=== PATIENT | female | born 1930 | race Caucasian/White ===

== ENCOUNTER → 2016-07-21 | Outpatient (CLI) | payer OTHER ==
[2016-07-21 09:19] LABS: PROTHROMBIN TIME (PATIENT) 10.9 SECONDS (9.0-12.0)
--- NOTE | 2016-07-24 18:55 | CODING QUERY NO DIAGNOSIS ---
: 1930 TREATMENT RENDERED WITHOUT A DIAGNOSIS To promote full compliance with coding requirements relating to patient care, physician participation is requested in all cases of pedicab driver uncertainty. Please assist us with providing a diagnosis/symptom for the test(s) below: A diagnosis/symptom was not documented on your Order. A valid diagnosis/symptom is required to bill all insurances. Please remember that we are unable to code a diagnosis of rule out, probable, possible, questionable, or suspected. Tests that require a diagnosis: * PROTHROMBIN TIME PRO DOS: 07/21/16 DIAGNOSIS: Provider Signature: Date: Thank you Piper Valenzuela [facility] Information [facility] Once completed, please kindly fax back to [phone] For questions please call [phone]
== END | disposition home or self-care (01) ==
LOC: C.LABOUTLO 08:37
PROVIDERS: ATTEND Family Medicine
DX: I48.91 Unspecified atrial fibrillation (principal)

== ENCOUNTER → 2016-07-24 | Outpatient (CLI) | payer OTHER ==
[2016-07-24 08:37] LABS: HEMATOCRIT 32.7 % (37-47); MEAN CELL VOLUME 85.6 fL (80-100); MEAN CORPUSCULAR HEMOGLOBIN 29.3 pg (25-34); MEAN CORPUSCULAR HGB CONC 34.3 g/dl (32-36); MEAN PLATELET VOLUME 11.6 fL (7.4-10.4); PLATELET COUNT 189 K/uL (130-400); RED BLOOD COUNT 3.82 M/uL (4.2-5.4)
[2016-07-24 08:46] LABS: INR 1.2 (0.9-1.1); PROTHROMBIN TIME (PATIENT) 13.1 SECONDS (9.0-12.0)
[2016-07-24 08:47] LABS: BLOOD UREA NITROGEN 30 mg/dl (7-18); BUN/CREATININE RATIO 17.9 (10-20); CALCIUM 8.7 mg/dl (8.5-10.1); CARBON DIOXIDE 23 mmol/L (21-32); CHLORIDE 102 mmol/L (98-107); GLUCOSE 87 mg/dl (70-99); POTASSIUM 3.8 mmol/L (3.5-5.1); SODIUM 138 mmol/L (136-145)
--- NOTE | 2016-07-25 07:54 | CODING QUERY NO DIAGNOSIS ---
: 1930 TREATMENT RENDERED WITHOUT A DIAGNOSIS To promote full compliance with coding requirements relating to patient care, physician participation is requested in all cases of oven heater uncertainty. Please assist us with providing a diagnosis/symptom for the test(s) below: A diagnosis/symptom was not documented on your Order. A valid diagnosis/symptom is required to bill all insurances. Please remember that we are unable to code a diagnosis of rule out, probable, possible, questionable, or suspected. Tests that require a diagnosis: DOS: 07/24/16 * Partial Renal Profile DIAGNOSIS: * Thyroid Stimulating Hormone DIAGNOSIS: * CBC W/o Differential DIAGNOSIS: * Prothrombin Time Profile DIAGNOSIS: Provider Signature: Date: Thank you Opal Arredondo [facility] Information Management Once completed, please kindly fax back to [phone] For questions please call [phone]
== END | disposition home or self-care (01) ==
LOC: C.LABOUTLO 08:19
PROVIDERS: ATTEND Internal Medicine
DX: Z00.00 Encounter for general adult medical examination without abnormal findings (principal)

== ENCOUNTER → 2016-07-26 | Outpatient (CLI) | payer OTHER ==
[2016-07-26 09:11] LABS: INR 1.8 (0.9-1.1); PROTHROMBIN TIME (PATIENT) 19.4 SECONDS (9.0-12.0)
--- NOTE | 2016-07-27 11:50 | CODING QUERY NO DIAGNOSIS ---
TREATMENT RENDERED WITHOUT A DIAGNOSIS To promote full compliance with coding requirements relating to patient care, physician participation is requested in all cases of customer support specialist uncertainty. Please assist us with providing a diagnosis/symptom for the test(s) below: A diagnosis/symptom was not documented on your Order. A valid diagnosis/symptom is required to bill all insurances. Please remember that we are unable to code a diagnosis of rule out, probable, possible, questionable, or suspected. Tests that require a diagnosis: * PT/INR DIAGNOSIS: Provider Signature: Date: Thank you Nahomy Shipley [employer] Information Management Once completed, please kindly fax back to [phone] For questions please call [phone]
== END | disposition home or self-care (01) ==
LOC: C.LABOUTLO 08:38
PROVIDERS: ATTEND Internal Medicine
DX: I48.91 Unspecified atrial fibrillation (principal)

== ENCOUNTER → 2016-07-27 | Outpatient (CLI) | payer OTHER ==
[2016-07-27 09:15] LABS: INR 2.6 (0.9-1.1)
--- NOTE | 2016-07-28 11:53 | CODING QUERY NO DIAGNOSIS ---
: 1930 TREATMENT RENDERED WITHOUT A DIAGNOSIS To promote full compliance with coding requirements relating to patient care, physician participation is requested in all cases of blister pack operator uncertainty. Please assist us with providing a diagnosis/symptom for the test(s) below: A diagnosis/symptom was not documented on your Order. A valid diagnosis/symptom is required to bill all insurances. Please remember that we are unable to code a diagnosis of rule out, probable, possible, questionable, or suspected. Tests that require a diagnosis: DOS: 07/27/16 * Prothrombin Time Profile DIAGNOSIS: Provider Signature: Date: Thank you Opal Arredondo [facility] Information Management Once completed, please kindly fax back to [phone] For questions please call [phone]
== END | disposition home or self-care (01) ==
LOC: C.LABOUTLO 08:57
PROVIDERS: ATTEND Internal Medicine
DX: I48.91 Unspecified atrial fibrillation (principal)

== ENCOUNTER → 2016-07-28 | Outpatient (CLI) | payer OTHER ==
[2016-07-28 10:18] LABS: INR 2.3 (0.9-1.1)
--- NOTE | 2016-08-11 07:50 | CODING QUERY NO DIAGNOSIS ---
TREATMENT RENDERED WITHOUT A DIAGNOSIS To promote full compliance with coding requirements relating to patient care, physician participation is requested in all cases of moving picture operator uncertainty. Please assist us with providing a diagnosis/symptom for the test(s) below: A diagnosis/symptom was not documented on your Order. A valid diagnosis/symptom is required to bill all insurances. Please remember that we are unable to code a diagnosis of rule out, probable, possible, questionable, or suspected. DATE OF SERVICE: 07/28/16 Tests that require a diagnosis: * PROTHROMBIN TIME DIAGNOSIS: Provider Signature: Date: [facility] Once completed, please kindly fax back to [phone] For questions please call [phone]
== END | disposition home or self-care (01) ==
LOC: C.LABOUTLO 09:24
PROVIDERS: ATTEND Internal Medicine
DX: I48.91 Unspecified atrial fibrillation (principal)

== ENCOUNTER → 2016-07-31 | Outpatient (CLI) | payer OTHER ==
[2016-07-31 10:06] LABS: INR 3.1 (0.9-1.1); PROTHROMBIN TIME (PATIENT) 34.5 SECONDS (9.0-12.0)
--- NOTE | 2016-08-01 11:36 | CODING QUERY NO DIAGNOSIS ---
TREATMENT RENDERED WITHOUT A DIAGNOSIS To promote full compliance with coding requirements relating to patient care, physician participation is requested in all cases of outsole skiver uncertainty. Please assist us with providing a diagnosis/symptom for the test(s) below: A diagnosis/symptom was not documented on your Order. A valid diagnosis/symptom is required to bill all insurances. Please remember that we are unable to code a diagnosis of rule out, probable, possible, questionable, or suspected. Tests that require a diagnosis: DOS: 07/31/16 * PT/INR DIAGNOSIS: Provider Signature: Date: Thank you [facility] Information Management Once completed, please kindly fax back to [phone] For questions please call [phone]
== END ==
LOC: C.LABOUTLO 09:04
PROVIDERS: ATTEND Internal Medicine
DX: I48.91 Unspecified atrial fibrillation (principal)

== ENCOUNTER → 2016-08-04 | Outpatient (CLI) | payer OTHER ==
[2016-08-04 09:45] LABS: INR 2.1 (0.9-1.1); PROTHROMBIN TIME (PATIENT) 22.7 SECONDS (9.0-12.0)
--- NOTE | 2016-08-07 09:50 | CODING QUERY NO DIAGNOSIS ---
TREATMENT RENDERED WITHOUT A DIAGNOSIS : 1930 To promote full compliance with coding requirements relating to patient care, physician participation is requested in all cases of automatic pinsetter mechanic uncertainty. Please assist us with providing a diagnosis/symptom for the test(s) below: A diagnosis/symptom was not documented on your Order. A valid diagnosis/symptom is required to bill all insurances. Please remember that we are unable to code a diagnosis of rule out, probable, possible, questionable, or suspected. DOS: 08/04/16 Tests that require a diagnosis: *PROTHROMBIN TIME PRO DIAGNOSIS: Provider Signature: Date: Thank you Piper Valenzuela [employer] Information Management Once completed, please kindly fax back to [phone] For questions please call [phone]
== END | disposition home or self-care (01) ==
LOC: C.LABOUTLO 09:19
PROVIDERS: ATTEND Internal Medicine
DX: I48.91 Unspecified atrial fibrillation (principal)

== ENCOUNTER → 2016-08-23 | Outpatient (CLI) | payer OTHER ==
[2016-08-23 10:51] LABS: INR 1.1 (0.9-1.1); PROTHROMBIN TIME (PATIENT) 11.4 SECONDS (9.0-12.0)
== END ==
LOC: C.LABOUTLO 10:16
PROVIDERS: ATTEND Internal Medicine
DX: I48.91 Unspecified atrial fibrillation (principal)

== ENCOUNTER → 2016-08-30 | Outpatient (CLI) | payer OTHER ==
[2016-08-30 09:45] LABS: INR 2.5 (0.9-1.1); PROTHROMBIN TIME (PATIENT) 27.6 SECONDS (9.0-12.0)
== END | disposition home or self-care (01) ==
LOC: C.LABOUTLO 09:21
PROVIDERS: ATTEND Internal Medicine
DX: I48.91 Unspecified atrial fibrillation (principal)

== ENCOUNTER → 2016-09-21 | Outpatient (CLI) | payer OTHER ==
[2016-09-21 10:33] LABS: INR 2.1 (0.9-1.1); PROTHROMBIN TIME (PATIENT) 23.4 SECONDS (9.0-12.0)
== END | disposition home or self-care (01) ==
LOC: C.LABOUTLO 09:12
PROVIDERS: ATTEND Internal Medicine
DX: Z00.00 Encounter for general adult medical examination without abnormal findings (principal)

== ENCOUNTER → 2016-10-10 | Outpatient (CLI) | payer OTHER ==
[2016-10-10 10:10] LABS: INR 2.2 (0.9-1.1); PROTHROMBIN TIME (PATIENT) 24.8 SECONDS (9.0-12.0)
== END | disposition home or self-care (01) ==
LOC: C.LABOUTLO 09:48
PROVIDERS: ATTEND Internal Medicine
DX: I48.91 Unspecified atrial fibrillation (principal)

== ENCOUNTER → 2016-11-15 | Outpatient (CLI) | payer OTHER ==
[2016-11-15 09:57] LABS: INR 1.6 (0.9-1.1); PROTHROMBIN TIME (PATIENT) 17.2 SECONDS (9.0-12.0)
== END | disposition home or self-care (01) ==
LOC: C.LABOUTLO 09:11
PROVIDERS: ATTEND Internal Medicine
DX: I48.91 Unspecified atrial fibrillation (principal)

== ENCOUNTER → 2016-11-17 | Outpatient (CLI) | payer OTHER ==
[2016-11-17 09:21] LABS: INR 1.5 (0.9-1.1); PROTHROMBIN TIME (PATIENT) 16.5 SECONDS (9.0-12.0)
== END | disposition home or self-care (01) ==
LOC: C.LABOUTLO 08:25
PROVIDERS: ATTEND Internal Medicine
DX: I48.91 Unspecified atrial fibrillation (principal)

== ENCOUNTER → 2016-11-23 | Outpatient (CLI) | payer OTHER ==
[2016-11-23 10:55] LABS: INR 2.6 (0.9-1.1); PROTHROMBIN TIME (PATIENT) 29.2 SECONDS (9.0-12.0)
== END | disposition home or self-care (01) ==
LOC: C.LABOUTLO 10:06
PROVIDERS: ATTEND Internal Medicine
DX: I48.91 Unspecified atrial fibrillation (principal)

== ENCOUNTER → 2016-12-05 | Outpatient (CLI) | payer OTHER ==
[2016-12-05 11:07] LABS: INR 2.8 (0.9-1.1); PROTHROMBIN TIME (PATIENT) 30.9 SECONDS (9.0-12.0)
== END | disposition home or self-care (01) ==
LOC: C.LABOUTLO 09:21
PROVIDERS: ATTEND Internal Medicine
DX: I48.91 Unspecified atrial fibrillation (principal)

== ENCOUNTER → 2016-12-18 | Outpatient (CLI) | payer OTHER ==
[2016-12-18 11:06] LABS: INR 2.6 (0.9-1.1); PROTHROMBIN TIME (PATIENT) 28.4 SECONDS (9.0-12.0)
== END | disposition home or self-care (01) ==
LOC: C.LABOUTLO 07:59
PROVIDERS: ATTEND Internal Medicine
DX: I48.91 Unspecified atrial fibrillation (principal)

== ENCOUNTER → 2017-01-01 | Outpatient (CLI) | payer OTHER ==
[2017-01-01 11:04] LABS: PROTHROMBIN TIME (PATIENT) 42.6 SECONDS (9.0-12.0)
[2017-01-01 11:19] LABS: INR 3.8 (0.9-1.1)
== END | disposition home or self-care (01) ==
LOC: C.LABOUTLO 10:08
PROVIDERS: ATTEND Internal Medicine
DX: I48.91 Unspecified atrial fibrillation (principal)

== ENCOUNTER → 2017-01-08 | Outpatient (CLI) | payer OTHER ==
[2017-01-08 09:36] LABS: INR 1.4 (0.9-1.1); PROTHROMBIN TIME (PATIENT) 15.4 SECONDS (9.0-12.0)
== END | disposition home or self-care (01) ==
LOC: C.LABOUTLO 08:40
PROVIDERS: ATTEND Internal Medicine
DX: I48.91 Unspecified atrial fibrillation (principal)

== ENCOUNTER → 2017-01-12 | Outpatient (CLI) | payer OTHER ==
[2017-01-12 09:10] LABS: INR 1.1 (0.9-1.1); PROTHROMBIN TIME (PATIENT) 11.6 SECONDS (9.0-12.0)
== END | disposition home or self-care (01) ==
LOC: C.LABOUTLO 08:42
PROVIDERS: ATTEND Internal Medicine
DX: I48.91 Unspecified atrial fibrillation (principal)

== ENCOUNTER → 2017-01-16 | Outpatient (CLI) | payer OTHER ==
[2017-01-16 12:16] LABS: BASO % 0.3 %; BASO ABS # 0.02 K/uL (0-0.2); COMPLETE YES; EOS % 2.3 %; HEMATOCRIT 37.1 % (37-47); IG% 0.2 %; LYMPH % 24.8 %; LYMPH ABS # 1.49 K/uL (1.2-3.4); MEAN CELL VOLUME 88.8 fL (80-100); MEAN CORPUSCULAR HEMOGLOBIN 28.9 pg (25-34); MEAN CORPUSCULAR HGB CONC 32.6 g/dl (32-36); MEAN PLATELET VOLUME 11.7 fL (7.4-10.4); MONO % 7.5 %; NEUT % 64.9 %; PLATELET COUNT 194 K/uL (130-400); RED BLOOD COUNT 4.18 M/uL (4.2-5.4); WHITE BLOOD COUNT 6.02 K/uL (4.8-10.8)
[2017-01-16 12:24] LABS: ALT/SGPT 25 U/L (12-78); BLOOD UREA NITROGEN 36 mg/dl (7-18); BUN/CREATININE RATIO 25.5 (10-20); CALCIUM 8.9 mg/dl (8.5-10.1); CARBON DIOXIDE 29 mmol/L (21-32); CHLORIDE 104 mmol/L (98-107); GLUCOSE 116 mg/dl (70-99); POTASSIUM 4.4 mmol/L (3.5-5.1); SODIUM 139 mmol/L (136-145)
[2017-01-16 12:27] LABS: ALB/GLOB RATIO 1.1 (0.9-2); ALKALINE PHOSPHATASE 68 U/L (45-117); AST/SGOT 23 U/L (15-37)
[2017-01-16 12:31] LABS: INR 1.3 (0.9-1.1); PARTIAL THROMBOPLASTIN RATIO 1.8; PROTHROMBIN TIME (PATIENT) 13.8 SECONDS (9.0-12.0)
== END | disposition home or self-care (01) ==
LOC: C.LABOUTLO 11:51
PROVIDERS: ATTEND Internal Medicine
DX: I48.91 Unspecified atrial fibrillation (principal)

== ENCOUNTER → 2017-01-18 | Outpatient (CLI) | payer OTHER ==
[2017-01-18 10:02] LABS: INR 1.1 (0.9-1.1)
== END | disposition home or self-care (01) ==
LOC: C.LABOUTLO 08:58
PROVIDERS: ATTEND Internal Medicine
DX: I48.91 Unspecified atrial fibrillation (principal)

== ENCOUNTER → 2017-01-20 | Outpatient (CLI) | payer OTHER ==
[2017-01-20 08:36] LABS: INR 1.1 (0.9-1.1); PROTHROMBIN TIME (PATIENT) 11.6 SECONDS (9.0-12.0)
== END | disposition home or self-care (01) ==
LOC: C.LABOUTLO 08:22
PROVIDERS: ATTEND Internal Medicine
DX: I48.91 Unspecified atrial fibrillation (principal)

== ENCOUNTER → 2017-01-22 | Outpatient (CLI) | payer OTHER ==
[2017-01-22 10:36] LABS: INR 1.1 (0.9-1.1); PROTHROMBIN TIME (PATIENT) 11.7 SECONDS (9.0-12.0)
== END | disposition home or self-care (01) ==
LOC: C.LABOUTLO 09:38
PROVIDERS: ATTEND Internal Medicine
DX: I48.91 Unspecified atrial fibrillation (principal)

== ENCOUNTER → 2017-01-25 | Outpatient (CLI) | payer OTHER ==
[2017-01-25 09:29] LABS: INR 2.1 (0.9-1.1); PROTHROMBIN TIME (PATIENT) 23.3 SECONDS (9.0-12.0)
== END | disposition home or self-care (01) ==
LOC: C.LABOUTLO 08:56
PROVIDERS: ATTEND Internal Medicine
DX: I48.91 Unspecified atrial fibrillation (principal)

== ENCOUNTER → 2017-02-07 | Outpatient (CLI) | payer OTHER ==
[2017-02-07 09:21] LABS: PROTHROMBIN TIME (PATIENT) 66.8 SECONDS (9.0-12.0)
[2017-02-07 09:33] LABS: INR 5.8 (0.9-1.1)
--- NOTE | 2017-02-11 21:10 | CODING QUERY NO DIAGNOSIS ---
: 1930 TREATMENT RENDERED WITHOUT A DIAGNOSIS To promote full compliance with coding requirements relating to patient care, physician participation is requested in all cases of rn chronic uncertainty. Please assist us with providing a diagnosis/symptom for the test(s) below: A diagnosis/symptom was not documented on your Order. A valid diagnosis/symptom is required to bill all insurances. Please remember that we are unable to code a diagnosis of rule out, probable, possible, questionable, or suspected. Tests that require a diagnosis: DOS: 02/07/17 * PROTHROMBIN TIME PROFILE DIAGNOSIS: Provider Signature: Date: Thank you Opal Arredondo [facility] Information Management Once completed, please kindly fax back to [phone] For questions please call [phone]
== END | disposition home or self-care (01) ==
LOC: C.LABOUTLO 08:35
PROVIDERS: ATTEND Internal Medicine
DX: I48.91 Unspecified atrial fibrillation (principal)

== ENCOUNTER → 2017-02-08 | Outpatient (CLI) | payer OTHER ==
[2017-02-08 10:03] LABS: PROTHROMBIN TIME (PATIENT) 61.6 SECONDS (9.0-12.0)
[2017-02-08 10:13] LABS: INR 5.4 (0.9-1.1)
--- NOTE | 2017-02-16 11:45 | CODING QUERY NO DIAGNOSIS ---
TREATMENT RENDERED WITHOUT A DIAGNOSIS To promote full compliance with coding requirements relating to patient care, physician participation is requested in all cases of trading manager uncertainty. Please assist us with providing a diagnosis/symptom for the test(s) below: A diagnosis/symptom was not documented on your Order. A valid diagnosis/symptom is required to bill all insurances. Please remember that we are unable to code a diagnosis of rule out, probable, possible, questionable, or suspected. Tests that require a diagnosis: DOS: 02/08/17 * PT/INR DIAGNOSIS: Provider Signature: Date: Thank you [facility] Information Management Once completed, please kindly fax back to [phone] For questions please call [phone]
== END | disposition home or self-care (01) ==
LOC: C.LABOUTLO 09:39
PROVIDERS: ATTEND Internal Medicine
DX: I48.91 Unspecified atrial fibrillation (principal)

== ENCOUNTER → 2017-02-10 | Outpatient (CLI) | payer OTHER ==
[2017-02-10 07:35] LABS: INR 2.2 (0.9-1.1); PROTHROMBIN TIME (PATIENT) 24.9 SECONDS (9.0-12.0)
== END | disposition home or self-care (01) ==
LOC: C.LABSPEC 08:22
PROVIDERS: ATTEND Internal Medicine
DX: I48.91 Unspecified atrial fibrillation (principal)

== ENCOUNTER → 2017-02-13 | Outpatient (CLI) | payer OTHER ==
[2017-02-13 10:43] LABS: INR 1.4 (0.9-1.1); PROTHROMBIN TIME (PATIENT) 15.3 SECONDS (9.0-12.0)
== END | disposition home or self-care (01) ==
LOC: C.LABOUTLO 10:00
PROVIDERS: ATTEND Internal Medicine
DX: I48.91 Unspecified atrial fibrillation (principal)

== ENCOUNTER → 2017-02-15 | Outpatient (CLI) | payer OTHER ==
[2017-02-15 10:28] LABS: INR 1.6 (0.9-1.1); PROTHROMBIN TIME (PATIENT) 17.9 SECONDS (9.0-12.0)
== END | disposition home or self-care (01) ==
LOC: C.LABOUTLO 09:45
PROVIDERS: ATTEND Internal Medicine
DX: I48.91 Unspecified atrial fibrillation (principal)

== ENCOUNTER → 2017-02-20 | Outpatient (CLI) | payer OTHER ==
[2017-02-20 13:15] LABS: INR 2.3 (0.9-1.1); PROTHROMBIN TIME (PATIENT) 25.2 SECONDS (9.0-12.0)
== END | disposition home or self-care (01) ==
LOC: C.LABOUTLO 12:39
PROVIDERS: ATTEND Internal Medicine
DX: I48.91 Unspecified atrial fibrillation (principal)

== ENCOUNTER → 2017-02-27 | Outpatient (CLI) | payer OTHER ==
[2017-02-27 11:35] LABS: INR 3.5 (0.9-1.1); PROTHROMBIN TIME (PATIENT) 39.1 SECONDS (9.0-12.0)
== END | disposition home or self-care (01) ==
LOC: C.LABOUTLO 10:16
PROVIDERS: ATTEND Internal Medicine
DX: I48.91 Unspecified atrial fibrillation (principal)

== ENCOUNTER → 2017-03-02 | Outpatient (CLI) | payer OTHER ==
[2017-03-02 09:49] LABS: INR 2.4 (0.9-1.1); PROTHROMBIN TIME (PATIENT) 26.8 SECONDS (9.0-12.0)
== END | disposition home or self-care (01) ==
LOC: C.LABOUTLO 08:52
PROVIDERS: ATTEND Internal Medicine
DX: I48.91 Unspecified atrial fibrillation (principal)

== ENCOUNTER → 2017-03-09 | Outpatient (CLI) | payer OTHER ==
[2017-03-09 09:12] LABS: INR 1.4 (0.9-1.1); PROTHROMBIN TIME (PATIENT) 14.8 SECONDS (9.0-12.0)
== END | disposition home or self-care (01) ==
LOC: C.LABOUTLO 08:39
PROVIDERS: ATTEND Internal Medicine
DX: I48.91 Unspecified atrial fibrillation (principal)

== ENCOUNTER → 2017-03-12 | Outpatient (CLI) | payer OTHER ==
[2017-03-12 08:37] LABS: INR 1.7 (0.9-1.1); PROTHROMBIN TIME (PATIENT) 18.7 SECONDS (9.0-12.0)
== END | disposition home or self-care (01) ==
LOC: C.LABOUTLO 07:56
PROVIDERS: ATTEND Internal Medicine
DX: I48.91 Unspecified atrial fibrillation (principal)

== ENCOUNTER → 2017-03-21 | Outpatient (CLI) | payer OTHER ==
[2017-03-21 09:15] LABS: INR 2.4 (0.9-1.1); PROTHROMBIN TIME (PATIENT) 27.1 SECONDS (9.0-12.0)
== END | disposition home or self-care (01) ==
LOC: C.LABOUTLO 08:46
PROVIDERS: ATTEND Internal Medicine
DX: I48.91 Unspecified atrial fibrillation (principal)

== ENCOUNTER → 2017-03-26 | Outpatient (CLI) | payer OTHER ==
[2017-03-26 09:03] LABS: INR 2.1 (0.9-1.1); PROTHROMBIN TIME (PATIENT) 23.4 SECONDS (9.0-12.0)
== END | disposition home or self-care (01) ==
LOC: C.LABOUTLO 08:49
PROVIDERS: ATTEND Internal Medicine
DX: I48.91 Unspecified atrial fibrillation (principal)

== ENCOUNTER → 2017-04-17 | Outpatient (CLI) | payer OTHER ==
[2017-04-17 08:54] LABS: INR 3.2 (0.9-1.1); PROTHROMBIN TIME (PATIENT) 36.5 SECONDS (9.0-12.0)
== END | disposition home or self-care (01) ==
LOC: C.LABOUTLO 08:27
PROVIDERS: ATTEND Internal Medicine
DX: I48.91 Unspecified atrial fibrillation (principal)

== ENCOUNTER → 2017-05-03 | Outpatient (CLI) | payer OTHER ==
[2017-05-03 08:43] LABS: INR 3.1 (0.9-1.1); PROTHROMBIN TIME (PATIENT) 34.9 SECONDS (9.0-12.0)
== END | disposition home or self-care (01) ==
LOC: C.LABOUTLO 07:58
PROVIDERS: ATTEND Internal Medicine
DX: I48.91 Unspecified atrial fibrillation (principal)

== ENCOUNTER → 2017-05-10 | Outpatient (CLI) | payer OTHER ==
[2017-05-10 09:13] LABS: INR 1.7 (0.9-1.1); PROTHROMBIN TIME (PATIENT) 18.6 SECONDS (9.0-12.0)
== END | disposition home or self-care (01) ==
LOC: C.LABOUTLO 07:52
PROVIDERS: ATTEND Internal Medicine
DX: I48.91 Unspecified atrial fibrillation (principal)

== ENCOUNTER → 2017-05-22 | Outpatient (CLI) | payer OTHER ==
[2017-05-22 09:25] LABS: INR 1.1 (0.9-1.1); PROTHROMBIN TIME (PATIENT) 11.8 SECONDS (9.0-12.0)
== END ==
LOC: C.LABOUTLO 08:38
PROVIDERS: ATTEND Internal Medicine
DX: I48.91 Unspecified atrial fibrillation (principal)

== ENCOUNTER → 2017-05-24 | Outpatient (CLI) | payer OTHER ==
[2017-05-24 08:39] LABS: INR 1.2 (0.9-1.1); PROTHROMBIN TIME (PATIENT) 12.4 SECONDS (9.0-12.0)
== END ==
LOC: C.LABOUTLO 08:14
PROVIDERS: ATTEND Internal Medicine
DX: I48.91 Unspecified atrial fibrillation (principal)

== ENCOUNTER → 2017-05-31 | Outpatient (CLI) | payer OTHER ==
[2017-05-31 10:01] LABS: INR 4.5 (0.9-1.1)
== END | disposition home or self-care (01) ==
LOC: C.LABOUTLO 09:09
PROVIDERS: ATTEND Internal Medicine
DX: I48.91 Unspecified atrial fibrillation (principal)